=== PATIENT | male | born 2000 | race Caucasian/White ===

== ENCOUNTER 2024-11-20 13:18 | Emergency (ER) | payer MEDICAID ==
[~2024-11-20] VITALS: Ht 172.7 cm; Wt 84.0 kg
[2024-11-20 13:30] VITALS: O2SAT 99
[2024-11-20] MEDS: ACETAMINOPHEN 500MG TABLET PO ONE (14:25)
[2024-11-20] MEDS: IBUPROFEN 600MG TABLET PO ONE (14:25)
[2024-11-20] MEDS ORDERED: IBUP-2028 MT (14:59)
[2024-11-20 15:54] VITALS: BP 138/93; PULSE 84; RESP 18; TEMP 36.6; O2SAT 98
== END 2024-11-20 15:55 | disposition home or self-care (01) ==
LOC: ER 13:18
DX: K08.89 Other specified disorders of teeth and supporting structures (principal)
CPT/HCPCS: 99283; Z7610